=== PATIENT | male | born 1970 | race Caucasian/White ===

== ENCOUNTER → 2017-01-28 | Outpatient (CLI) | payer BC, OTHER ==
[~2017-01-28] MED LIST: SODIUM CHLORIDE 0.9% 250 ML in EMPTY BAG 1 BAG IV PRN; SODIUM CHLORIDE 0.9% 500 ML in EMPTY BAG 1 BAG IV PRN
== END | disposition home or self-care (01) ==
LOC: PROCWHC3 07:04
DX: Z53.9 Procedure and treatment not carried out, unspecified reason (principal)

== ENCOUNTER → 2017-03-04 | Outpatient (CLI) | payer OTHER ==
[2017-03-04 08:14] LABS: Basophils % (A) 1 %; CH 31.7; CHCM 35.4; Eosinophils # (A) 0.2 k/uL (0-0.7); Eosinophils % (A) 2 %; HCT 44.8 % (39.0-53.0); HDW 2.64; HGB 15.6 gm/dL (13.0-17.5); Luc # (Auto) 0.16; Luc % (Auto) 2; Lymphocytes % (A) 29 %; MCH 31.2 pg (25.0-35.0); MCHC 34.7 g/dL (31.0-37.0); MCV 89.9 fL (80.0-100.0); Mean Platelet Volume 7.5; Monocytes # (A) 0.5 k/uL (0-1.0); Monocytes % (A) 8 %; Neutrophils % (A) 58 %; RBC 4.99 m/uL (4.30-5.90); RDW 12.5 % (11.5-15.5); WBC 6.9 k/uL (3.8-10.6); WBC (Perox) 7.02
[2017-03-04 08:54] VITALS: BP 136/82; PULSE 72; RESP 16; TEMP 98.2
== END | disposition home or self-care (01) ==
LOC: PROCWHC3 06:57
DX: E83.110 Hereditary hemochromatosis (principal)
CPT/HCPCS: 82728; 83540; 83550; 85025; 99195

== ENCOUNTER → 2017-06-24 | Outpatient (CLI) | payer OTHER ==
[~2017-06-24] MED LIST changes: +DENOSUMAB 60 MG/ML 1 ML SYRINGE SQ ONE
[2017-06-24 08:08] VITALS: RESP 16; TEMP 98.2
[2017-06-24 08:08] LABS: Basophils % (A) 0 %; CHCM 34.5; Eosinophils # (A) 0.2 k/uL (0-0.7); Eosinophils % (A) 3 %; HCT 45.9 % (39.0-53.0); HDW 2.55; HGB 15.8 gm/dL (13.0-17.5); Luc # (Auto) 0.16; Luc % (Auto) 2; Lymphocytes # (A) 2.2 k/uL (1.0-4.8); Lymphocytes % (A) 33 %; MCH 31.1 pg (25.0-35.0); MCHC 34.4 g/dL (31.0-37.0); MCV 90.4 fL (80.0-100.0); Mean Platelet Volume 7.5; Monocytes # (A) 0.5 k/uL (0-1.0); Monocytes % (A) 7 %; Neutrophils # (A) 3.7 k/uL (1.3-7.7); Neutrophils % (A) 55 %; RBC 5.07 m/uL (4.30-5.90); RDW 12.5 % (11.5-15.5); WBC 6.8 k/uL (3.8-10.6); WBC (Perox) 6.99
[2017-06-24 08:42] VITALS: BP 137/89; PULSE 67
[2017-06-24 10:30] LABS: % Iron Saturation 62.2 % (20-50)
== END | disposition home or self-care (01) ==
LOC: PROCWHC3 07:04
DX: E83.119 Hemochromatosis, unspecified (principal)
CPT/HCPCS: 36415; 82728; 83540; 83550; 85025; 99195

== ENCOUNTER → 2018-02-12 | Outpatient (CLI) | payer OTHER ==
[~2018-02-12] MED LIST changes: -DENOSUMAB 60 MG/ML 1 ML SYRINGE SQ ONE; -SODIUM CHLORIDE 0.9% 250 ML in EMPTY BAG 1 BAG IV PRN
[2018-02-12 07:44] VITALS: RESP 16; TEMP 98.1
[2018-02-12 07:50] LABS: Basophils % (A) 0 %; Eosinophils # (A) 0.1 k/uL (0-0.7); Eosinophils % (A) 2 %; HCT 44.2 % (39.0-53.0); HGB 14.6 gm/dL (13.0-17.5); Lymphocytes # (A) 1.7 k/uL (1.0-4.8); Lymphocytes % (A) 26 %; MCH 28.9 pg (25.0-35.0); MCV 87.7 fL (80.0-100.0); Mean Platelet Volume 7.9; Monocytes # (A) 0.3 k/uL (0-1.0); Monocytes % (A) 5 %; Neutrophils # (A) 4.4 k/uL (1.3-7.7); Neutrophils % (A) 66 %; Platelet Count 213 k/uL (150-450); RBC 5.05 m/uL (4.30-5.90); RDW 12.3 % (11.5-15.5); WBC 6.7 k/uL (3.8-10.6)
[2018-02-12 08:21] VITALS: BP 123/80; PULSE 75
[2018-02-12 10:51] LABS: Iron Saturation 80.88 (15.00-50.00)
== END | disposition home or self-care (01) ==
LOC: PROCWHC3 07:03
DX: E83.119 Hemochromatosis, unspecified (principal)
CPT/HCPCS: 36415; 82728; 83540; 83550; 85025; 99195

== ENCOUNTER → 2018-06-16 | Outpatient (CLI) | payer OTHER ==
[2018-06-16 08:09] VITALS: TEMP 98
[2018-06-16 08:31] LABS: HCT 43.1 % (39.0-53.0); HGB 14.5 gm/dL (13.0-17.5); MCH 30.3 pg (25.0-35.0); MCHC 33.7 g/dL (31.0-37.0); Mean Platelet Volume 7.2; Platelet Count 214 k/uL (150-450); RBC 4.79 m/uL (4.30-5.90); RDW 12.6 % (11.5-15.5); WBC 6.5 k/uL (3.8-10.6)
[2018-06-16 08:58] VITALS: BP 131/70; PULSE 74; RESP 15
[2018-06-16 16:50] LABS: Iron Saturation 74.52 (15.00-50.00)
== END ==
LOC: PROCWHC3 08:01
DX: E83.119 Hemochromatosis, unspecified (principal)
CPT/HCPCS: 36415; 82728; 83540; 83550; 85027; 99195

== ENCOUNTER → 2018-10-31 | Outpatient (CLI) | payer OTHER ==
[2018-10-31 09:42] VITALS: RESP 18; TEMP 97.9
[2018-10-31 09:51] LABS: HCT 45.2 % (39.0-53.0); HGB 15.6 gm/dL (13.0-17.5); MCH 30.6 pg (25.0-35.0); MCHC 34.5 g/dL (31.0-37.0); MCV 88.6 fL (80.0-100.0); Mean Platelet Volume 7.4; Platelet Count 231 k/uL (150-450); RDW 12.3 % (11.5-15.5); WBC 7.2 k/uL (3.8-10.6)
[2018-10-31 10:50] VITALS: BP 131/89; PULSE 77
[2018-10-31 16:56] LABS: Iron Saturation 48.83 (15.00-50.00)
== END ==
LOC: PROCWHC3 09:23
PROVIDERS: ATTEND Physician Assistant
DX: E83.110 Hereditary hemochromatosis (principal)
CPT/HCPCS: 82728; 83540; 83550; 85027; 99195

== ENCOUNTER → 2019-03-05 | Outpatient (CLI) | payer BC, OTHER ==
[2019-03-05 08:18] VITALS: BP 130/87; RESP 16; TEMP 98.3
[2019-03-05 08:36] LABS: HCT 46.1 % (39.0-53.0); HGB 15.8 gm/dL (13.0-17.5); MCH 30.5 pg (25.0-35.0); MCHC 34.3 g/dL (31.0-37.0); MCV 88.7 fL (80.0-100.0); Mean Platelet Volume 7.3; Platelet Count 212 k/uL (150-450); RDW 12.7 % (11.5-15.5); WBC 6.4 k/uL (3.8-10.6)
[2019-03-05 09:16] VITALS: PULSE 81
[2019-03-05 16:48] LABS: Iron Saturation 72.32 (15.00-50.00)
== END ==
LOC: PROCWHC3 08:04
DX: E83.110 Hereditary hemochromatosis (principal)
CPT/HCPCS: 36415; 82728; 83540; 83550; 85027; 99195

== ENCOUNTER → 2019-07-02 | Outpatient (CLI) | payer BC ==
[~2019-07-02] MED LIST changes: +SODIUM CHLORIDE 0.9% 500 ML 500 ML in EMPTY BAG 1 BAG IV PRN; -SODIUM CHLORIDE 0.9% 500 ML in EMPTY BAG 1 BAG IV PRN
[2019-07-02 08:20] VITALS: RESP 16; TEMP 98.1
[2019-07-02 08:44] LABS: HCT 43.8 % (39.0-53.0); MCH 31.2 pg (25.0-35.0); MCHC 34.1 g/dL (31.0-37.0); MCV 91.4 fL (80.0-100.0); Mean Platelet Volume 8.1; Platelet Count 203 k/uL (150-450); RDW 14.2 % (11.5-15.5); WBC 6.9 k/uL (3.8-10.6)
[2019-07-02 09:06] VITALS: BP 127/85; PULSE 71
[2019-07-02 16:02] LABS: Iron Saturation 90.98 (15.00-50.00)
== END ==
LOC: PROCWHC3 08:01
PROVIDERS: ATTEND Physician Assistant
DX: E83.110 Hereditary hemochromatosis (principal)
CPT/HCPCS: 36415; 82728; 83540; 83550; 85027; 99195

== ENCOUNTER → 2019-11-05 | Outpatient (CLI) | payer BC ==
[2019-11-05 08:26] VITALS: TEMP 98.7
[2019-11-05 08:46] LABS: HCT 44.9 % (39.0-53.0); HGB 15.6 gm/dL (13.0-17.5); MCHC 34.7 g/dL (31.0-37.0); MCV 89.3 fL (80.0-100.0); Mean Platelet Volume 8.1; Platelet Count 212 k/uL (150-450); RBC 5.03 m/uL (4.30-5.90); RDW 12.3 % (11.5-15.5); WBC 7.2 k/uL (3.8-10.6)
[2019-11-05 09:21] VITALS: BP 125/75; PULSE 79; RESP 16
[2019-11-05 16:01] LABS: % Iron Saturation 97.28 (15.00-50.00)
[2019-11-05 16:09] LABS: Ferritin 151.5 ng/mL (22.0-322.0)
== END | disposition home or self-care (01) ==
LOC: PROCWHC3 08:14
PROVIDERS: ATTEND Physician Assistant
DX: E83.110 Hereditary hemochromatosis (principal)
CPT/HCPCS: 36415; 82728; 83540; 83550; 85027; 99195

== ENCOUNTER → 2020-04-07 | Outpatient (CLI) | payer BC ==
[2020-04-07 07:45] VITALS: RESP 16; TEMP 98
[2020-04-07 08:04] LABS: HCT 46.9 % (39.0-53.0); HGB 15.7 gm/dL (13.0-17.5); MCH 30.6 pg (25.0-35.0); MCHC 33.4 g/dL (31.0-37.0); MCV 91.6 fL (80.0-100.0); Mean Platelet Volume 7.7; Platelet Count 242 k/uL (150-450); RBC 5.12 m/uL (4.30-5.90); RDW 12.4 % (11.5-15.5); WBC 7.6 k/uL (3.8-10.6)
[2020-04-07 08:29] VITALS: BP 141/74; PULSE 83
[2020-04-07 17:28] LABS: % Iron Saturation 63.35 (15.00-50.00)
[2020-04-07 17:38] LABS: Ferritin 119.8 ng/mL (22.0-322.0)
== END | disposition home or self-care (01) ==
LOC: PROCWHC3 07:19
PROVIDERS: ATTEND Physician Assistant
DX: E83.110 Hereditary hemochromatosis (principal)
CPT/HCPCS: 36415; 82728; 83540; 83550; 85027; 99195

== ENCOUNTER → 2020-10-20 | Outpatient (CLI) | payer OTHER ==
[2020-10-20 08:30] VITALS: PULSE 69; RESP 16; TEMP 98.4
[2020-10-20 08:43] LABS: HCT 45.5 % (39.0-53.0); HGB 15.7 gm/dL (13.0-17.5); MCH 31.6 pg (25.0-35.0); MCHC 34.5 g/dL (31.0-37.0); MCV 91.4 fL (80.0-100.0); Mean Platelet Volume 7.7; Platelet Count 183 k/uL (150-450); RBC 4.98 m/uL (4.30-5.90); RDW 12.3 % (11.5-15.5); WBC 6.6 k/uL (3.8-10.6)
[2020-10-20 09:08] VITALS: BP 130/73
[2020-10-20 15:47] LABS: Ferritin 142.3 ng/mL (22.0-322.0)
[2020-10-20 15:48] LABS: % Iron Saturation 70.66 (15.00-50.00)
== END | disposition home or self-care (01) ==
LOC: PROCWHC3 08:16
PROVIDERS: ATTEND Physician Assistant
DX: E83.110 Hereditary hemochromatosis (principal)
CPT/HCPCS: 36415; 82728; 83540; 83550; 85027; 99195

== ENCOUNTER → 2021-01-24 | Outpatient (CLI) | payer OTHER ==
[2021-01-24 07:42] VITALS: PULSE 73; RESP 16; TEMP 97.9
[2021-01-24 08:10] LABS: HCT 45.6 % (39.0-53.0); HGB 15.6 gm/dL (13.0-17.5); MCH 31.3 pg (25.0-35.0); MCHC 34.1 g/dL (31.0-37.0); MCV 91.7 fL (80.0-100.0); Mean Platelet Volume 8.3; Platelet Count 178 k/uL (150-450); RBC 4.98 m/uL (4.30-5.90); RDW 11.9 % (11.5-15.5); WBC 6.9 k/uL (3.8-10.6)
[2021-01-24 08:36] VITALS: BP 116/82
[2021-01-24 11:16] LABS: % Iron Saturation 102.01 (15.00-50.00)
[2021-01-24 11:23] LABS: Ferritin 136.4 ng/mL (22.0-322.0)
== END ==
LOC: PROCWHC3 07:08
PROVIDERS: ATTEND Physician Assistant
DX: E83.110 Hereditary hemochromatosis (principal)
CPT/HCPCS: 36415; 82728; 83540; 83550; 85027; 99195

== ENCOUNTER → 2021-06-02 | Outpatient (CLI) | payer OTHER ==
[2021-06-02 07:47] VITALS: RESP 16; TEMP 98.2
[2021-06-02 07:55] LABS: HCT 42.4 % (39.0-53.0); HGB 15.1 gm/dL (13.0-17.5); MCH 31.8 pg (25.0-35.0); MCHC 35.6 g/dL (31.0-37.0); MCV 89.5 fL (80.0-100.0); Platelet Count 199 k/uL (150-450); RBC 4.74 m/uL (4.30-5.90); RDW 12.1 % (11.5-15.5); WBC 6.1 k/uL (3.8-10.6)
[2021-06-02 09:02] VITALS: BP 132/68; PULSE 76
[2021-06-02 15:36] LABS: Ferritin 165.8 ng/mL (22.0-322.0)
[2021-06-02 18:30] LABS: % Iron Saturation 42.4 (15.00-50.00)
== END ==
LOC: PROCWHC3 07:06
PROVIDERS: ATTEND Physician Assistant
DX: E83.119 Hemochromatosis, unspecified (principal)
CPT/HCPCS: 36415; 82728; 83540; 83550; 85027; 99195

== ENCOUNTER → 2021-10-06 | Outpatient (CLI) | payer OTHER ==
[2021-10-06 07:59] VITALS: RESP 16; TEMP 98.4
[2021-10-06 08:00] LABS: HCT 43.2 % (39.0-53.0); HGB 15.2 gm/dL (13.0-17.5); MCHC 35.2 g/dL (31.0-37.0); Platelet Count 239 k/uL (150-450); RBC 4.75 m/uL (4.30-5.90); RDW 12.7 % (11.5-15.5); WBC 5.9 k/uL (3.8-10.6)
[2021-10-06 08:28] VITALS: BP 135/85; PULSE 90
[2021-10-06 11:49] LABS: % Iron Saturation 37.52 (15.00-50.00)
== END | disposition home or self-care (01) ==
LOC: PROCWHC3 07:25
PROVIDERS: ATTEND Physician Assistant
DX: E83.110 Hereditary hemochromatosis (principal)
CPT/HCPCS: 36415; 82728; 83540; 83550; 85027; 99195

== ENCOUNTER → 2022-02-15 | Outpatient (CLI) | payer OTHER ==
[2022-02-15 08:06] VITALS: RESP 16; TEMP 97.9
[2022-02-15 08:18] LABS: HCT 46.3 % (39.0-53.0); HGB 15.7 gm/dL (13.0-17.5); MCH 31.3 pg (25.0-35.0); MCHC 33.9 g/dL (31.0-37.0); MCV 92.2 fL (80.0-100.0); Platelet Count 204 k/uL (150-450); RBC 5.02 m/uL (4.30-5.90); WBC 6.6 k/uL (3.8-10.6)
[2022-02-15 08:58] VITALS: BP 148/73; PULSE 79
== END | disposition home or self-care (01) ==
LOC: PROCWHC3 07:37
PROVIDERS: ATTEND Physician Assistant
DX: E83.110 Hereditary hemochromatosis (principal)
CPT/HCPCS: 36415; 85027; 99195

== ENCOUNTER → 2022-06-07 | Outpatient (CLI) | payer OTHER ==
[2022-06-07 07:41] VITALS: BP 149/89; PULSE 82; RESP 16; TEMP 98.3
[2022-06-07 07:54] LABS: HCT 45.4 % (39.0-53.0); HGB 15.2 gm/dL (13.0-17.5); MCH 31.4 pg (25.0-35.0); MCHC 33.5 g/dL (31.0-37.0); MCV 93.5 fL (80.0-100.0); Mean Platelet Volume 8.6; Platelet Count 169 k/uL (150-450); RBC 4.86 m/uL (4.30-5.90); RDW 12.7 % (11.5-15.5); WBC 6.9 k/uL (3.8-10.6)
[2022-06-07 11:04] LABS: % Iron Saturation 82.88 (15.00-50.00)
== END ==
LOC: PROCWHC3 07:21
PROVIDERS: ATTEND Physician Assistant
DX: E83.119 Hemochromatosis, unspecified (principal)
CPT/HCPCS: 82728; 83540; 83550; 85027

== ENCOUNTER → 2022-09-03 | Outpatient (CLI) | payer OTHER ==
[2022-09-03 08:36] VITALS: RESP 16
[2022-09-03 08:40] LABS: HCT 44.2 % (39.0-53.0); HGB 15.5 gm/dL (13.0-17.5); MCH 31.7 pg (25.0-35.0); MCHC 35.1 g/dL (31.0-37.0); MCV 90.2 fL (80.0-100.0); Mean Platelet Volume 8.5; Platelet Count 198 k/uL (150-450); RDW 12.2 % (11.5-15.5); WBC 6.3 k/uL (3.8-10.6)
[2022-09-03 08:57] LABS: ALT 35 U/L (4-49); AST 29 U/L (17-59); African American GFR (CKD) >90 (>60 ml/min/1.73 sqM); Albumin 4.3 g/dL (3.5-5.0); Alkaline Phosphatase 86 U/L (38-126); Anion Gap 11 mmol/L; Blood Urea Nitrogen 15 mg/dL (9-20); Carbon Dioxide 24 mmol/L (22-30); Chloride 102 mmol/L (98-107); Glucose 139 mg/dL (74-99); Non-African American GFR(CKD) >90 (>60 ml/min/1.73 sqM); Potassium 4.1 mmol/L (3.5-5.1); Sodium 137 mmol/L (137-145); Total Bilirubin 0.9 mg/dL (0.2-1.3); Total Protein 6.7 g/dL (6.3-8.2)
[2022-09-03 09:31] VITALS: BP 146/70; PULSE 83
[2022-09-03 14:50] LABS: % Iron Saturation 83.39 (15.00-50.00); Iron 251 ug/dL (65-175); Total Iron Binding Capacity 301 ug/dL (228-460)
== END | disposition home or self-care (01) ==
LOC: PROCWHC3 08:18
PROVIDERS: ATTEND Physician Assistant
DX: E83.110 Hereditary hemochromatosis (principal)
CPT/HCPCS: 36415; 80053; 82728; 83540; 83550; 85027; 99195

== ENCOUNTER → 2022-12-03 | Outpatient (CLI) | payer OTHER ==
[2022-12-03 07:38] VITALS: RESP 16; TEMP 97.8
[2022-12-03 08:02] LABS: HGB 15.3 gm/dL (13.0-17.5); MCV 91.2 fL (80.0-100.0); Mean Platelet Volume 8.3; Platelet Count 203 k/uL (150-450); RBC 4.94 m/uL (4.30-5.90); RDW 12.5 % (11.5-15.5); WBC 6.9 k/uL (3.8-10.6)
[2022-12-03 08:25] VITALS: BP 140/93; PULSE 87
[2022-12-03 08:35] LABS: ALT 52 U/L (4-49); AST 35 U/L (17-59); African American GFR (CKD) >90 (>60 ml/min/1.73 sqM); Albumin 4.3 g/dL (3.5-5.0); Alkaline Phosphatase 97 U/L (38-126); Anion Gap 8 mmol/L; Blood Urea Nitrogen 20 mg/dL (9-20); Calcium 8.9 mg/dL (8.4-10.2); Carbon Dioxide 26 mmol/L (22-30); Chloride 106 mmol/L (98-107); Glucose 123 mg/dL (74-99); Non-African American GFR(CKD) >90 (>60 ml/min/1.73 sqM); Potassium 4.4 mmol/L (3.5-5.1); Sodium 140 mmol/L (137-145); Total Bilirubin 0.4 mg/dL (0.2-1.3); Total Protein 7.1 g/dL (6.3-8.2)
[2022-12-03 19:35] LABS: % Iron Saturation 30.89 (15.00-50.00); Iron 96 ug/dL (65-175); Total Iron Binding Capacity 311 ug/dL (228-460)
== END ==
LOC: PROCWHC3 07:21
PROVIDERS: ATTEND Physician Assistant
DX: E83.110 Hereditary hemochromatosis (principal)
CPT/HCPCS: 36415; 80053; 82728; 83540; 83550; 85027; 99195

== ENCOUNTER → 2023-03-04 | Outpatient (CLI) | payer OTHER ==
[2023-03-04 07:36] VITALS: RESP 16; TEMP 98
[2023-03-04 08:02] LABS: HCT 43.5 % (39.0-53.0); HGB 14.6 gm/dL (13.0-17.5); MCH 30.3 pg (25.0-35.0); MCHC 33.5 g/dL (31.0-37.0); MCV 90.4 fL (80.0-100.0); Mean Platelet Volume 8.1; Platelet Count 190 k/uL (150-450); RBC 4.81 m/uL (4.30-5.90); RDW 12.2 % (11.5-15.5); WBC 6.6 k/uL (3.8-10.6)
[2023-03-04 08:33] VITALS: BP 146/85; PULSE 79
[2023-03-04 12:14] LABS: % Iron Saturation 63.72 (15.00-50.00); Ferritin 96.3 ng/mL (22.0-322.0)
== END ==
LOC: PROCWHC3 07:15
PROVIDERS: ATTEND Internal Medicine Gastroenterology
DX: E83.110 Hereditary hemochromatosis (principal)
CPT/HCPCS: 36415; 82728; 83540; 83550; 85027; 99195

== ENCOUNTER → 2023-10-16 | Outpatient (CLI) | payer OTHER ==
[2023-10-16 08:24] LABS: HCT 45.1 % (39.0-53.0); HGB 15.4 gm/dL (13.0-17.5); MCH 30.9 pg (25.0-35.0); MCHC 34.1 g/dL (31.0-37.0); MCV 90.6 fL (80.0-100.0); Mean Platelet Volume 8.4; Platelet Count 219 k/uL (150-450); RBC 4.98 m/uL (4.30-5.90); RDW 12.4 % (11.5-15.5)
[2023-10-16 08:36] VITALS: RESP 16; TEMP 98.3
[2023-10-16 08:52] LABS: ALT 33 U/L (4-49); AST 27 U/L (17-59); African American GFR (CKD) >90 (>60 ml/min/1.73 sqM); Albumin 4.4 g/dL (3.5-5.0); Alkaline Phosphatase 91 U/L (38-126); Anion Gap 9 mmol/L; Blood Urea Nitrogen 21 mg/dL (9-20); Calcium 9.5 mg/dL (8.4-10.2); Carbon Dioxide 27 mmol/L (22-30); Chloride 100 mmol/L (98-107); Glucose 133 mg/dL (74-99); Non-African American GFR(CKD) >90 (>60 ml/min/1.73 sqM); Potassium 4.3 mmol/L (3.5-5.1); Sodium 136 mmol/L (137-145); Total Bilirubin 0.9 mg/dL (0.2-1.3); Total Protein 7.1 g/dL (6.3-8.2)
[2023-10-16 09:36] VITALS: BP 111/62; PULSE 83
[2023-10-16 16:09] LABS: % Iron Saturation 53.69 (15.00-50.00); Iron 160 UG/DL (65-175); Total Iron Binding Capacity 298 UG/DL (228-460)
== END ==
LOC: PROCWHC3 07:51
PROVIDERS: ATTEND Internal Medicine Gastroenterology
DX: E83.110 Hereditary hemochromatosis (principal)
CPT/HCPCS: 36415; 80053; 82728; 83540; 83550; 85027; 99195

== ENCOUNTER → 2024-01-22 | Outpatient (CLI) | payer OTHER ==
[2024-01-22 08:12] LABS: HGB 15.2 gm/dL (13.0-17.5); MCH 30.8 pg (25.0-35.0); MCHC 33.7 g/dL (31.0-37.0); MCV 91.2 fL (80.0-100.0); Mean Platelet Volume 8.3; Platelet Count 218 k/uL (150-450); RBC 4.93 m/uL (4.30-5.90); RDW 11.9 % (11.5-15.5); WBC 6.5 k/uL (3.8-10.6)
[2024-01-22 08:25] LABS: ALT 46 U/L (4-49); AST 34 U/L (17-59); African American GFR (CKD) >90 (>60 ml/min/1.73 sqM); Albumin 4.2 g/dL (3.5-5.0); Alkaline Phosphatase 92 U/L (38-126); Anion Gap 8 mmol/L; Blood Urea Nitrogen 16 mg/dL (9-20); Calcium 9.3 mg/dL (8.4-10.2); Carbon Dioxide 23 mmol/L (22-30); Chloride 106 mmol/L (98-107); Glucose 164 mg/dL (74-99); Non-African American GFR(CKD) >90 (>60 ml/min/1.73 sqM); Sodium 137 mmol/L (137-145); Total Bilirubin 1.1 mg/dL (0.2-1.3); Total Protein 6.8 g/dL (6.3-8.2)
[2024-01-22 08:39] VITALS: RESP 16; TEMP 98.2
[2024-01-22 09:17] VITALS: BP 137/80; PULSE 88
[2024-01-22 11:55] LABS: % Iron Saturation 86.22 (15.00-50.00); Iron 244 UG/DL (65-175); Total Iron Binding Capacity 283 UG/DL (228-460)
== END ==
LOC: PROCWHC3 07:31
PROVIDERS: ATTEND Internal Medicine Gastroenterology
DX: E83.110 Hereditary hemochromatosis (principal)
CPT/HCPCS: 36415; 80053; 83540; 83550; 85027; 99195

== ENCOUNTER → 2024-05-08 | Outpatient (CLI) | payer OTHER ==
[2024-05-08 13:37] VITALS: RESP 14; TEMP 98.5
[2024-05-08 13:58] LABS: HCT 45.1 % (39.0-53.0); HGB 14.7 gm/dL (13.0-17.5); MCH 30.1 pg (25.0-35.0); MCHC 32.7 g/dL (31.0-37.0); Mean Platelet Volume 8.5; Platelet Count 206 k/uL (150-450); RDW 12.1 % (11.5-15.5); WBC 7.7 k/uL (3.8-10.6)
[2024-05-08 14:23] LABS: ALT 36 U/L (4-49); AST 34 U/L (17-59); African American GFR (CKD) >90 (>60 ml/min/1.73 sqM); Albumin 4.3 g/dL (3.5-5.0); Alkaline Phosphatase 94 U/L (38-126); Anion Gap 7 mmol/L; Blood Urea Nitrogen 18 mg/dL (9-20); Calcium 9.6 mg/dL (8.4-10.2); Carbon Dioxide 25 mmol/L (22-30); Chloride 106 mmol/L (98-107); Glucose 161 mg/dL (74-99); Non-African American GFR(CKD) >90 (>60 ml/min/1.73 sqM); Potassium 4.1 mmol/L (3.5-5.1); Sodium 138 mmol/L (137-145); Total Bilirubin 0.5 mg/dL (0.2-1.3); Total Protein 6.6 g/dL (6.3-8.2)
[2024-05-08 14:39] VITALS: BP 146/89; PULSE 79
[2024-05-08 19:16] LABS: % Iron Saturation 34.03 (15.00-50.00); Iron 98 UG/DL (65-175); Total Iron Binding Capacity 288 UG/DL (228-460)
== END ==
LOC: PROCWHC3 13:14
PROVIDERS: ATTEND Internal Medicine Gastroenterology
DX: E83.119 Hemochromatosis, unspecified (principal)
CPT/HCPCS: 36415; 80053; 83540; 83550; 85027; 99195

== ENCOUNTER → 2024-08-07 | Outpatient (CLI) | payer OTHER ==
[2024-08-07 11:06] VITALS: BP 146/88; TEMP 97.8
[2024-08-07 11:18] LABS: HCT 44.9 % (39.0-53.0); HGB 15.1 gm/dL (13.0-17.5); MCH 31.1 pg (25.0-35.0); MCHC 33.7 g/dL (31.0-37.0); MCV 92.2 fL (80.0-100.0); Mean Platelet Volume 10.4; Platelet Count 102 k/uL (150-450); RBC 4.87 m/uL (4.30-5.90); RDW 12.2 % (11.5-15.5); WBC 5.8 k/uL (3.8-10.6)
[2024-08-07 11:32] LABS: ALT 32 U/L (4-49); AST 28 U/L (17-59); African American GFR (CKD) >90 (>60 ml/min/1.73 sqM); Albumin 4.2 g/dL (3.5-5.0); Alkaline Phosphatase 71 U/L (38-126); Anion Gap 8 mmol/L; Blood Urea Nitrogen 14 mg/dL (9-20); Calcium 9.6 mg/dL (8.4-10.2); Carbon Dioxide 26 mmol/L (22-30); Chloride 104 mmol/L (98-107); Glucose 118 mg/dL (74-99); Non-African American GFR(CKD) >90 (>60 ml/min/1.73 sqM); Potassium 4.1 mmol/L (3.5-5.1); Sodium 138 mmol/L (137-145); Total Bilirubin 0.9 mg/dL (0.2-1.3); Total Protein 6.6 g/dL (6.3-8.2)
[2024-08-07 11:47] VITALS: PULSE 78; RESP 16
[2024-08-07 20:25] LABS: % Iron Saturation 79.79 (15.00-50.00); Ferritin 80.8 ng/mL (22.0-322.0); Iron 229 UG/DL (65-175); Total Iron Binding Capacity 287 UG/DL (228-460)
== END ==
LOC: PROCWHC3 10:54
PROVIDERS: ATTEND Internal Medicine Gastroenterology
DX: E83.110 Hereditary hemochromatosis (principal)
CPT/HCPCS: 36415; 80053; 82728; 83540; 83550; 85027; 99195

== ENCOUNTER → 2024-11-06 | Outpatient (CLI) | payer OTHER ==
[~2024-11-06] MED LIST changes: +SODIUM CHLORIDE 0.9% 250 ML in EMPTY BAG 1 BAG IV PRN
[2024-11-06 07:55] VITALS: RESP 16; TEMP 97.6
[2024-11-06 08:13] LABS: HCT 45.2 % (39.0-53.0); HGB 15.5 gm/dL (13.0-17.5); MCHC 34.3 g/dL (31.0-37.0); MCV 90.5 fL (80.0-100.0); Mean Platelet Volume 8.3; Platelet Count 194 k/uL (150-450); RDW 12.7 % (11.5-15.5); WBC 7.1 k/uL (3.8-10.6)
[2024-11-06 08:19] LABS: ALT 40 U/L (4-49); AST 29 U/L (17-59); African American GFR (CKD) >90 (>60 ml/min/1.73 sqM); Albumin 4.4 g/dL (3.5-5.0); Alkaline Phosphatase 94 U/L (38-126); Anion Gap 5 mmol/L; Blood Urea Nitrogen 17 mg/dL (9-20); Calcium 9.3 mg/dL (8.4-10.2); Carbon Dioxide 27 mmol/L (22-30); Chloride 102 mmol/L (98-107); Glucose 97 mg/dL (74-99); Non-African American GFR(CKD) >90 (>60 ml/min/1.73 sqM); Potassium 4.3 mmol/L (3.5-5.1); Sodium 134 mmol/L (137-145); Total Bilirubin 0.5 mg/dL (0.2-1.3); Total Protein 6.6 g/dL (6.3-8.2)
[2024-11-06 08:34] VITALS: BP 126/87; PULSE 71
[2024-11-06 16:26] LABS: % Iron Saturation 47.51 (15.00-50.00); Iron 143 UG/DL (65-175); Total Iron Binding Capacity 301 UG/DL (228-460)
== END ==
LOC: PROCWHC3 07:38
PROVIDERS: ATTEND Internal Medicine Gastroenterology
DX: E83.110 Hereditary hemochromatosis (principal)
CPT/HCPCS: 36415; 80053; 82728; 83540; 83550; 85027; 99195

== ENCOUNTER → 2025-02-25 | Outpatient (CLI) | payer OTHER ==
[2025-02-25 07:57] VITALS: TEMP 98.2
[2025-02-25 08:57] LABS: Basophils # (A) 0.03 10*3/uL (0.00-0.10); Basophils % (A) 0.5 %; Eosinophils # (A) 0.13 10*3/uL (0.04-0.35); HCT 44.3 % (39.6-50.0); HGB 15.2 g/dL (13.0-17.0); Lymphocytes # (A) 1.68 10*3/uL (0.90-5.00); Lymphocytes % (A) 26.4 %; MCHC 34.3 g/dL (32.0-37.0); MCV 90.4 fL (80.0-97.0); Mean Platelet Volume 10.5 fL (9.5-12.2); Monocytes # (A) 0.56 10*3/uL (0.20-1.00); Monocytes % (A) 8.8 %; Neutrophils # (A) 3.95 10*3/uL (1.80-7.70); Neutrophils % (A) 62.1 %; Platelet Count 221 10*3/uL (140-440); RDW 12.4 % (11.5-14.5); WBC 6.36 10*3/uL (4.50-10.00)
[2025-02-25 09:12] VITALS: BP 133/82; PULSE 80; RESP 16
[2025-02-25 16:47] LABS: % Iron Saturation 47.55 (15.00-50.00)
== END ==
LOC: PROCWHC3 07:35
PROVIDERS: ATTEND Internal Medicine Gastroenterology
DX: E83.110 Hereditary hemochromatosis (principal)
CPT/HCPCS: 36415; 82728; 83540; 83550; 85025; 99195